=== PATIENT | male | born 1980 | race Caucasian/White ===

== ENCOUNTER 2019-02-15 21:00 | Emergency (ER) | payer MEDICAID ==
[~2019-02-15] VITALS: Ht 162.6 cm; Wt 106.6 kg
[2019-02-15 21:06] VITALS: BP 129/90
--- NOTE | 2019-02-15 21:08 | NUR ---
TO LOBBY A/W BED, VSS, AMBULATORY
--- NOTE | 2019-02-15 21:17 | NUR ---
PT AMBULATED TO BED 12
--- NOTE | 2019-02-15 21:23 | NUR ---
PT C/O L EAR PRESSURE ACHE AND PAIN 10/10 X 24 HRS. NO REDNESS SWELLING DRAINAGE NOTED. CURRENTLY TAKING A PRESCRIPTION OF NORCO AND AMOXICILLIN FOR DENTAL PAIN BUT HAS NOT HELPED WITH EARACHE. DENIES CP/SOB/NVD.
--- NOTE | 2019-02-15 21:55 | NUR ---
PT'S FAMILY REQUESTING PAIN MEDICATION. PT WAITING TO BE SEEN BY ERMD. FAMILY ADVISED PT MUST BE SEEN BY ERMD FOR ORDERS. DR. PATRICIA MADE AWARE. NO NEW ORDERS RECEIVED AT THIS TIME.
[2019-02-15] MEDS ORDERED: KETOROLAC 60 MG/2 ML VIAL IM ONE (23:20)
--- NOTE | 2019-02-15 23:27 | NUR ---
report to [facility], transfer of care at this time
[2019-02-15 23:49] VITALS: BP 129/90
--- NOTE | 2019-02-15 23:49 | NUR ---
PT LEFT WITHOUT DISCHARGE INSTRUCTIONS. PT LEFT WITHOUT RECEIVING MEDICATION FOR PAIN. NO FURTHER CARE PROVIDED.
== END 2019-02-15 23:49 | disposition home or self-care (01) ==
LOC: MED 21:00
DX: H60.92 Unspecified otitis externa, left ear (principal); E11.9 Type 2 diabetes mellitus without complications
CPT/HCPCS: 99281; J1885